=== PATIENT | female | born 1960 | race Caucasian/White ===

== ENCOUNTER 2017-03-25 15:42 | Outpatient (CLI) | payer OTHER ==
--- NOTE | 2017-03-25 16:32 | MMO ---
BILATERAL SCREENING MAMMOGRAM: DATE: 03/25/17 HISTORY: 57-year-old female for screening mammography. COMPARISON: 02/13/16, 01/14/15, 11/14/13, 10/27/12. FINDINGS: Bilateral MLO and CC views of the breasts show heterogeneously dense breast parenchyma, which may lo wer the sensitivity of mammography. Vascular calcifications are seen. Other benign-appearing calcifi cations are seen in both breasts. There is no evidence of suspicious mass, suspicious cluster of vita rocalcifications, or area of architectural distortion. Interpretation of this mammogram was performed with the assistance of computer-aided detection. IMPRESSION: BIRADS 2: Benign Finding(s) Annual screening mammography is recommended. POS: AMANUEL
== END 2017-03-25 15:43 | disposition home or self-care (01) ==
LOC: SCSMAMMO 15:42
PROVIDERS: ATTEND Nurse Practitioner Family
DX: Z12.31 Encounter for screening mammogram for malignant neoplasm of breast (principal)
CPT/HCPCS: 77067; G0202

== ENCOUNTER 2018-04-07 11:14 | Outpatient (CLI) | payer OTHER ==
--- NOTE | 2018-04-07 12:19 | MMO ---
BILATERAL SCREENING MAMMOGRAMS: Date: 04/07/18 Comparison made to prior exams from 2016 and 2017. This patient's mammogram was interpreted with the assistance of computer-aided detection. FINDINGS: Heterogeneously dense glandular pattern is noted. There are scattered benign-appearing calcifications . Vascular calcifications are present. No mass or distortion seen. No interval change identified. Re commend one year follow-up. IMPRESSION: BIRADS 2: Benign Finding(s) POS: AMANUEL
== END 2018-04-07 11:15 | disposition home or self-care (01) ==
LOC: SCSMAMMO 11:14
PROVIDERS: ATTEND Nurse Practitioner Family
DX: Z12.31 Encounter for screening mammogram for malignant neoplasm of breast (principal)
CPT/HCPCS: 77067

== ENCOUNTER 2019-04-10 13:53 | Outpatient (CLI) | payer OTHER ==
--- NOTE | 2019-04-10 14:54 | MMO ---
Bilateral MAMMO Bilat Screen [facility]. CLINICAL HISTORY: Patient is 59 years old and is seen for screening. The patient has no family history of breast cancer. The patient has no personal history of cancer. The patient has a history of left Excisional Biopsy in 2010 - benign. VIEWS: The views performed were: bilateral craniocaudal with tomosynthesis and bilateral mediolateral oblique with tomosynthesis. FILMS COMPARED: The present examination has been compared to prior imaging studies performed at [facility] on 01/14/2015, 02/13/2016, 03/25/2017 and 04/07/2018. This study has been interpreted with the assistance of computer-aided detection. MAMMOGRAM FINDINGS: There are scattered fibroglandular densities. There are stable benign appearing calcifications seen in both breasts. There are also vascular calcifications. There are no suspicious masses, suspicious calcifications, or new areas of architectural distortion. IMPRESSION: THERE IS NO MAMMOGRAPHIC EVIDENCE OF MALIGNANCY. A ROUTINE FOLLOW-UP MAMMOGRAM IN 1 YEAR IS RECOMMENDED. THE RESULTS OF THIS EXAM WERE SENT TO THE PATIENT. ACR BI-RADS Category 2 - Benign finding MAMMOGRAPHY NOTE: 1. A negative mammogram report should not delay a biopsy if a dominant of clinically suspicious mass is present. 2. Approximately 10% to 15% of breast cancers are not detected by mammography. 3. Adenosis and dense breasts may obscure an underlying neoplasm. Reported by: MIGUELITO LEWIS MD Electonically Signed: [id number]
== END 2019-04-10 13:54 | disposition home or self-care (01) ==
LOC: BICMAMMO 13:53
PROVIDERS: ATTEND Family Medicine
DX: Z12.31 Encounter for screening mammogram for malignant neoplasm of breast (principal); I10 Essential (primary) hypertension
CPT/HCPCS: 77063; 77067

== ENCOUNTER 2020-05-17 15:18 | Outpatient (CLI) | payer BC, MEDICARE ==
--- NOTE | 2020-05-17 15:51 | MMO ---
Bilateral MAMMO Bilat Screen [facility]. CLINICAL HISTORY: Patient is 60 years old and is seen for screening. The patient has no family history of breast cancer. The patient has no personal history of cancer. The patient has a history of left Excisional Biopsy in 2010 - benign. VIEWS: The views performed were: bilateral craniocaudal with tomosynthesis and bilateral mediolateral oblique with tomosynthesis. FILMS COMPARED: The present examination has been compared to prior imaging studies performed at [facility] on 02/13/2016, 03/25/2017 and 04/07/2018, and at [facility] on 04/10/2019. This study has been interpreted with the assistance of computer-aided detection. MAMMOGRAM FINDINGS: The breasts are heterogeneously dense, which could obscure a lesion on mammography. There are benign appearing and vascular calcifications seen in both breasts. There are no suspicious masses, suspicious calcifications, or new areas of architectural distortion. IMPRESSION: THERE IS NO MAMMOGRAPHIC EVIDENCE OF MALIGNANCY. A ROUTINE FOLLOW-UP MAMMOGRAM IN 1 YEAR IS RECOMMENDED. THE RESULTS OF THIS EXAM WERE SENT TO THE PATIENT. ACR BI-RADS Category 2 - Benign finding MAMMOGRAPHY NOTE: 1. A negative mammogram report should not delay a biopsy if a dominant of clinically suspicious mass is present. 2. Approximately 10% to 15% of breast cancers are not detected by mammography. 3. Adenosis and dense breasts may obscure an underlying neoplasm. Reported by: FREDERICK CLANCY MD Electonically Signed: [id number]
== END 2020-05-17 15:19 | disposition home or self-care (01) ==
LOC: BICMAMMO 15:18
PROVIDERS: ATTEND Family Medicine
DX: Z12.31 Encounter for screening mammogram for malignant neoplasm of breast (principal); Z91.89 Other specified personal risk factors, not elsewhere classified
CPT/HCPCS: 77063; 77067

== ENCOUNTER 2021-06-16 10:02 | Outpatient (CLI) | payer BC | END 2021-06-16 10:03 | disposition home or self-care (01) | LOC: BICMAMMO 10:02 | PROVIDERS: ATTEND Family Medicine | DX: Z12.31 Encounter for screening mammogram for malignant neoplasm of breast (principal); Z91.89 Other specified personal risk factors, not elsewhere classified | CPT/HCPCS: 77063; 77067 ==

== ENCOUNTER 2022-07-16 15:38 | Outpatient (CLI) | payer BC | END 2022-07-16 15:39 | disposition home or self-care (01) | LOC: BICMAMMO 15:38 | PROVIDERS: ATTEND Family Medicine | DX: Z12.31 Encounter for screening mammogram for malignant neoplasm of breast (principal); Z91.89 Other specified personal risk factors, not elsewhere classified | CPT/HCPCS: 77063; 77067 ==

== ENCOUNTER 2022-07-23 13:09 | Outpatient (CLI) | payer BC | END 2022-07-23 13:10 | disposition home or self-care (01) | LOC: BICMAMMO 13:09 | PROVIDERS: ATTEND Family Medicine | DX: N63.10 Unspecified lump in the right breast, unspecified quadrant (principal); N60.11 Diffuse cystic mastopathy of right breast | CPT/HCPCS: G0279 ==

== ENCOUNTER 2023-02-22 22:56 | Inpatient (IN) | payer BC ==
[2023-02-22 23:27] LABS: #Basophils 0.1 thou/uL (0.0-0.2); #Eosinphils 0.2 thou/uL (0.0-0.7); #Monocytes 1.5 thou/uL (0.11-0.59); #Neutrophils 19.6 thou/uL (1.40-6.50); %Basophils 0.2 % (0.0-1.0); %Eosinophils 0.9 % (0.0-10.0); %Lymphocytes 7.5 % (21.0-51.0); %Monocytes 6.3 % (0.0-10.0); %Neutrophils 84.4 % (42.0-75.0); Hematocrit 35.2 % (36.0-47.0); Hemoglobin 12.1 g/dL (12.0-16.0); Mean Corpuscular HGB CONC 34.4 g/dL (32.0-36.0); Mean Corpuscular Hemoglobin 28.9 pg (27.0-31.0); Mean Platelet Volume 8.9 fL (7.4-10.4); Platelet Count 342 10x3/uL (130-400); RBC Distribution Width 13.6 % (11.5-14.5); Red Blood Cell (RBC) Count 4.19 mill/uL (4.20-5.40); White Blood Cell (WBC) Count 23.2 10x3/uL (4.8-10.8)
[2023-02-22 23:38] LABS: Bacteria/HPF None Seen HPF (None Seen); Bilirubin Negative (Negative); Blood, Urine Negative (Negative); CAUTI Indications for Culture Acute Hematuria; Calcium Oxalate Crystals 2+ HPF (None Seen); Clarity Clear (Clear); Glucose, Urine (Dipstick) Greater than 1000 mg/dL (Negative); Ketone, Urine Negative (Negative); Leukocyte Negative Leu/uL (Negative); Nitrite Negative (Negative); Protein, Urine (Dipstick) 20 mg/dL (Neg-Trace); Specific Gravity, Urine 1.038 (1.002-1.036); Squamous Epithelial 0-3 HPF (0-3); Urobilinogen Normal mg/dL (Less than 2); WBC/HPF 0-3 HPF (0-3)
[2023-02-22 23:39] LABS: RBC/HPF 0-3 HPF (0-3)
[2023-02-22 23:40] LABS: Urine Culture Reflex No No
[2023-02-22 23:53] LABS: ALT (SGPT) 20 U/L (8-55); AST (SGOT) 18 U/L (5-34); Alkaline Phosphatase 112 U/L (40-110); Anion Gap 13 mmol/L (10-20); BUN (Urea Nitrogen) 18 mg/dL (9.8-20.1); Bilirubin, Total 0.4 mg/dL (0.2-1.2); Calc. Creatinine Clearance 0 mL/min (70-130); Calcium 9.2 mg/dL (7.8-10.44); Carbon Dioxide 23 mmol/L (23-31); Chloride 104 mmol/L (98-107); Estimated GFR 69; Globulin 2.9 g/dL (2.4-3.5); Glucose 189 mg/dL (80-115); Potassium 3.6 mmol/L (3.5-5.1); Protein, Total 6.9 g/dL (5.8-8.1); Sodium 136 mmol/L (136-145)
[2023-02-23 00:52] LABS: CK (CPK) 36 U/L (29-168); Lipase 16 U/L (8-78); Magnesium 1.1 mg/dL (1.6-2.6)
[2023-02-23 00:56] LABS: Troponin I 0.134 ng/mL (< 0.028)
[2023-02-23] MEDS ORDERED: Magnesium 2 GM/50 ML BAG (IN WATER) ONE (01:32)
[2023-02-23 02:56] LABS: Troponin I 0.471 ng/mL (< 0.028)
[2023-02-23] MEDS ORDERED: Heparin 10,000 UNITS/ 10 ML VIAL ONE (03:24)
[2023-02-23] MEDS ORDERED: Heparin 25,000 units/D5W 500 ML ONE (03:24)
[2023-02-23] MEDS ORDERED: Aspirin Chewable 81 MG TAB ONE ×2 (03:27→09:19)
[2023-02-23 04:19] LABS: INR-International Normal Ratio 1.1; PTT 34.5 sec (22.9-36.1); Prothrombin Time 14.8 sec (12.0-14.7)
[2023-02-23] MEDS ORDERED: Dextrose 5% in Water 1,000 ML IV PRN (05:37)
[2023-02-23] MEDS ORDERED: Glucagon 1 MG/ML KIT IM PRN (05:37)
[2023-02-23] MEDS ORDERED: Dextrose 50% Abboject 50 ML SYRINGE SLOW IVP PRN (05:37)
[2023-02-23] MEDS ORDERED: Ondansetron ODT 4 MG TAB PO PRN (05:37)
[2023-02-23] MEDS ORDERED: Acetaminophen 325 MG TAB PO PRN (05:37)
[2023-02-23] MEDS ORDERED: Acetaminophen 650 MG Suppository PR PRN (05:37)
[2023-02-23] MEDS ORDERED: Ondansetron PF 4 MG/2 ML Vial IVP PRN (05:37)
[2023-02-23] MEDS ORDERED: HumaLOG 300 UNITS/3 ML VIAL SC PRN ×2 (05:37)
[2023-02-23 06:20] LABS: Troponin I 0.687 ng/mL (< 0.028)
[2023-02-23 06:25] LABS: #Eosinphils 0.1 thou/uL (0.0-0.7); #Monocytes 0.7 thou/uL (0.11-0.59); #Neutrophils 17.3 thou/uL (1.40-6.50); %Basophils 0.2 % (0.0-1.0); %Eosinophils 0.4 % (0.0-10.0); %Lymphocytes 7.3 % (21.0-51.0); %Monocytes 3.6 % (0.0-10.0); %Neutrophils 88.2 % (42.0-75.0); Hematocrit 34.5 % (36.0-47.0); Hemoglobin 11.8 g/dL (12.0-16.0); Mean Corpuscular HGB CONC 34.2 g/dL (32.0-36.0); Mean Corpuscular Hemoglobin 29.2 pg (27.0-31.0); Mean Corpuscular Volume 85.4 fl (78.0-98.0); Mean Platelet Volume 9.8 fL (7.4-10.4); Platelet Count 359 10x3/uL (130-400); RBC Distribution Width 13.6 % (11.5-14.5); Red Blood Cell (RBC) Count 4.04 mill/uL (4.20-5.40); White Blood Cell (WBC) Count 19.6 10x3/uL (4.8-10.8)
[2023-02-23 06:36] LABS: Anion Gap 13 mmol/L (10-20); BUN (Urea Nitrogen) 14 mg/dL (9.8-20.1); Calc. Creatinine Clearance 0 mL/min (70-130); Carbon Dioxide 20 mmol/L (23-31); Chloride 107 mmol/L (98-107); Estimated GFR 78; Glucose 161 mg/dL (80-115); Potassium 4.3 mmol/L (3.5-5.1); Sodium 136 mmol/L (136-145)
[2023-02-23 08:16] VITALS: BMI 25.2
[2023-02-23] MEDS ORDERED: Nitroglycerin 0.4 MG TAB (25 Tab Bottle) SL PRN (08:23)
[2023-02-23] MEDS ORDERED: Heparin 25,000 units/D5W 500 ML IVPB SCH (08:30)
[2023-02-23] MEDS ORDERED: Heparin 10,000 UNITS/ 10 ML VIAL SLOW IVP SCH (08:30)
[2023-02-23] MEDS ORDERED: Sodium Chloride 0.9% 1,000 ML IV SCH (08:30)
[2023-02-23 08:41] LABS: Hematocrit 33.6 % (36.0-47.0); Hemoglobin 11.3 g/dL (12.0-16.0); Platelet Count 328 10x3/uL (130-400)
[2023-02-23] MEDS ORDERED: Iopamidol-370 76% 500 ML MDV (1 ML CHARGE) ONE (09:14)
[2023-02-23] MEDS: Aspirin 81 mg Enteric Coated Tablet PO SCH (09:23)
[2023-02-23 09:27] LABS: Troponin I 0.882 ng/mL (< 0.028)
[2023-02-23 09:55] LABS: PTT 126.9 sec (22.9-36.1)
[2023-02-23] MEDS: Atorvastatin Calcium 40 MG TAB PO SCH (21:02)
[2023-02-24] MEDS: Aspirin 81 mg Enteric Coated Tablet PO SCH (08:29)
[2023-02-24] MEDS ORDERED: Regadenoson 0.4 MG/5 ML SYRINGE ONE (09:08)
[2023-02-24 09:26] LABS: Troponin I 0.169 ng/mL (< 0.028)
[2023-02-24] MEDS: Atorvastatin Calcium 40 MG TAB PO SCH (20:23)
[2023-02-25 05:16] LABS: #Eosinphils 0.3 thou/uL (0.0-0.7); #Monocytes 0.5 thou/uL (0.11-0.59); #Neutrophils 4.3 thou/uL (1.40-6.50); %Basophils 0.3 % (0.0-1.0); %Eosinophils 4.1 % (0.0-10.0); %Lymphocytes 27.5 % (21.0-51.0); %Monocytes 7.4 % (0.0-10.0); %Neutrophils 60.4 % (42.0-75.0); Hematocrit 34.2 % (36.0-47.0); Hemoglobin 11.2 g/dL (12.0-16.0); Mean Corpuscular HGB CONC 32.7 g/dL (32.0-36.0); Mean Corpuscular Hemoglobin 28.6 pg (27.0-31.0); Mean Corpuscular Volume 87.5 fl (78.0-98.0); Mean Platelet Volume 8.9 fL (7.4-10.4); Platelet Count 274 10x3/uL (130-400); RBC Distribution Width 13.6 % (11.5-14.5); Red Blood Cell (RBC) Count 3.91 mill/uL (4.20-5.40)
[2023-02-25 05:25] LABS: Hemoglobin A1c 5.5 % (4.0-6.0)
[2023-02-25 05:41] LABS: Anion Gap 11 mmol/L (10-20); BUN (Urea Nitrogen) 12 mg/dL (9.8-20.1); Calc. Creatinine Clearance 74 mL/min (70-130); Calcium 8.8 mg/dL (7.8-10.44); Carbon Dioxide 24 mmol/L (23-31); Cardiac Risk 4.1 (Less than 4.5); Chloride 106 mmol/L (98-107); Cholesterol 163 mg/dl (< 200 Desired); Estimated GFR 87; Glucose 119 mg/dL (80-115); HDL Cholesterol 40 mg/dL (>60 Neg Risk); LDL Cholesterol, Calculated 91 mg/dL; Potassium 3.9 mmol/L (3.5-5.1); Sodium 137 mmol/L (136-145); Triglycerides 161 mg/dL (Less than 150)
[2023-02-25] MEDS ORDERED: Communication Order-Pharmacy FS SCH (06:00)
[2023-02-25] MEDS ORDERED: Sodium Chloride 0.9% 1,000 ML IV SCH (06:00)
[2023-02-25] MEDS ORDERED: Adenosine 6 MG/2 ML VIAL ONE (06:50)
[2023-02-25] MEDS ORDERED: Heparin 10,000 UNITS/ 10 ML VIAL ONE (06:50)
[2023-02-25] MEDS ORDERED: Verapamil 5 MG/2 ML VIAL ONE (06:50)
[2023-02-25] MEDS ORDERED: Atropine Sulfate 1 mg/10 ml Syringe ONE (06:51)
[2023-02-25] MEDS ORDERED: Lidocaine 1% (PF) 30 ML VIAL ONE (06:51)
[2023-02-25] MEDS ORDERED: Nitroglycerin 50 MG/250 ML BOT 0 ML ONE (06:51)
[2023-02-25] MEDS ORDERED: Midazolam HCl 2 mg/2 ml Vial ONE (07:34)
[2023-02-25] MEDS ORDERED: fentaNYL 50 mcg/mL 1 mL Vial ONE (07:34)
[2023-02-25] MEDS ORDERED: Sodium Chloride 0.9% 200 ML IV PRN (08:17)
[2023-02-25 12:14] VITALS: TEMP 98.3
[2023-02-25] MEDS: Aspirin 81 mg Enteric Coated Tablet PO SCH (12:24)
[2023-02-25 16:50] VITALS: BP 128/69
== END 2023-02-25 17:04 | disposition home or self-care (01) | DRG 372 ==
LOC: ERS 22:56 → ERHOLD 02-23 03:38 → 2NO 02-23 17:58
PROVIDERS: ADMIT Student in an Organized Health Care Education/Training Program; ATTEND Family Medicine
PROC: 4A023N7 Measurement of Cardiac Sampling and Pressure, Left Heart, Percutaneous Approach (ICD-10-PCS; principal; 2023-02-25)
PROC: B2111ZZ Fluoroscopy of Multiple Coronary Arteries using Low Osmolar Contrast (ICD-10-PCS; 2023-02-25)
PROC: B2151ZZ Fluoroscopy of Left Heart using Low Osmolar Contrast (ICD-10-PCS; 2023-02-25)
DX: A05.4 Foodborne Bacillus cereus intoxication (principal); I51.81 Takotsubo syndrome; I5A Non-ischemic myocardial injury (non-traumatic); A05.8 Other specified bacterial foodborne intoxications; E11.9 Type 2 diabetes mellitus without complications; E66.9 Obesity, unspecified; I10 Essential (primary) hypertension; D72.829 Elevated white blood cell count, unspecified; E83.42 Hypomagnesemia; E86.9 Volume depletion, unspecified; Z90.710 Acquired absence of both cervix and uterus; Z98.890 Other specified postprocedural states; Z88.8 Allergy status to other drugs, medicaments and biological substances; Z79.82 Long term (current) use of aspirin; Z79.84 Long term (current) use of oral hypoglycemic drugs; Z79.899 Other long term (current) drug therapy
CPT/HCPCS: 36415; 36416; 71045; 74177; 78452; 80048; 80053; 80061; 81001; 82550; 83036; 83605; 83690; 83735; 84484; 85025; 85610; 85730; 93005; 93017; 93306; 93458; 96365; 96366; 96367; 97139; 99152; A9500; J0153; J0461; J1644; J2001; J2250; J2785; J3010; J3475; J7050; Q9967